=== PATIENT | male | born 1990 | race Two or more races ===

== ENCOUNTER 2018-06-12 09:48 | Emergency (ER) | payer SELFPAY ==
[~2018-06-12] VITALS: Ht 167.6 cm; Wt 73.5 kg
[2018-06-12 09:48] VITALS: BP 128/73
[2018-06-12] MEDS ORDERED: LORAZEPAM 1 MG TABLET ONE (11:56)
[2018-06-12] MEDS ORDERED: LORAZEPAM 1 MG TABLET PO ONE (12:00)
== END 2018-06-12 12:05 | disposition home or self-care (01) ==
LOC: ER 09:50
DX: F41.0 Panic disorder [episodic paroxysmal anxiety] (principal); F41.9 Anxiety disorder, unspecified
CPT/HCPCS: 99284; A4606